=== PATIENT | male | born 1985 | race Caucasian/White ===

== ENCOUNTER 2019-06-12 22:40 | Inpatient (IN) | payer OTHER ==
[~2019-06-12] VITALS: Ht 157.5 cm; Wt 65.9 kg
[2019-06-12 23:06] LABS: BASOPHILS % (AUTO) 0.9 % (0.0-2.0); EOSINOPHILS % (AUTO) 3.8 % (1.0-6.0); HEMATOCRIT 45.4 % (41-53); HEMOGLOBIN 15.3 g/dL (13.5-17.5); LYMPHOCYTES # (AUTO) 2.7 K/uL (1.0-4.8); MEAN CORPUSCULAR HEMOGLOBIN 27.8 pg (26.0-34.0); MEAN CORPUSCULAR HGB CONC 33.7 G/dL (31.0-37.0); MEAN CORPUSCULAR VOLUME 82 fL (80-100); MONOCYTES # (AUTO) 0.4 K/uL (0.1-1.0); MONOCYTES % (AUTO) 5.2 % (2.0-9.0); NEUTROPHILS # (AUTO) 4.6 K/uL (1.8-7.7); NEUTROPHILS % (AUTO) 57.1 % (40.0-70.0); PLATELET COUNT (AUTO) 161 K/uL (150-450); RED BLOOD CELL COUNT(AUTO) 5.52 MIL/uL (4.50-5.90)
[2019-06-12 23:16] LABS: ANION GAP 8 mmol/L (8-16); CALCIUM, TOTAL 9.6 mg/dL (8.8-10.5); CARBON DIOXIDE 29 mmol/L (22-29); CHLORIDE 100 mmol/L (98-107); CREATININE 1.17 mg/dL (0.60-1.30); GLOMERULAR FILTR. RATE CALC > 60 mL/min (>60); GLUCOSE,RANDOM 101 mg/dL (70-110); POTASSIUM 3.9 mmol/L (3.5-5.1); SODIUM SERUM 137 mmol/L (136-145); UREA NITROGEN, BLOOD 13 mg/dL (7-18)
[2019-06-12 23:22] LABS: ALANINE AMINOTRANSFERASE 17 U/L (12-78); ALKALINE PHOSPHATASE 88 U/L (46-116); ASPARTATE AMINOTRANSFERASE 14 U/L (15-37); BILIRUBIN,TOTAL 0.4 mg/dL (0.1-1.0); TOTAL PROTEIN, SERUM 7.3 g/dL (6.4-8.2)
[2019-06-13] MEDS ORDERED: ONDANSETRON HCL 4 MG/2 ML VIAL IVP PRN ×2 (00:45→16:45)
[2019-06-13] MEDS ORDERED: 0.9% SODIUM CHLORIDE 10 ML SYRINGE IVP PRN (00:45)
[2019-06-13] MEDS ORDERED: ACETAMINOPHEN 325 MG TABLET PO PRN ×2 (00:45→16:45)
[2019-06-13 01:34] VITALS: BP 121/69
[2019-06-13 08:02] VITALS: BP 103/67
[2019-06-13] MEDS ORDERED: DSS100 PO (11:17)
[2019-06-13] MEDS ORDERED: OLAN5TAB2 PO (11:17)
[2019-06-13] MEDS ORDERED: PANT40TA25 PO (11:17)
[2019-06-13] MEDS ORDERED: TRAZ-220 PO (11:18)
[2019-06-13 11:30] VITALS: BP 114/68
[2019-06-13 15:53] VITALS: BP 100/59
[2019-06-13] MEDS ORDERED: ALBUTEROL SULFATE 2.5 MG/0.5 ML NEB SOLUTION NEB PRN (16:45)
[2019-06-13] MEDS ORDERED: IPRATROPIUM BROMIDE 0.5 MG/2.5 ML NEB SOLUTION NEB PRN (16:45)
[2019-06-13] MEDS ORDERED: ZOLPIDEM TARTRATE 5 MG TABLET PO PRN (16:45)
[2019-06-13] MEDS ORDERED: HYDROCODONE/ACETAMINOPHEN 5-325 MG TABLET PO PRN (16:45)
[2019-06-13] MEDS ORDERED: BISACODYL 10 MG RECTAL RECTAL SUPPOSITORY PR PRN (16:45)
[2019-06-13] MEDS ORDERED: MORPHINE SULFATE 2 MG/ML SYRINGE IVP PRN (16:45)
[2019-06-13] MEDS ORDERED: MAGNESIUM HYDROXIDE SUSPENSION 30 ML UDCUP PO PRN (16:45)
[2019-06-13 20:00] VITALS: BP 112/64
[2019-06-13] MEDS: DOCUSATE SODIUM 100 MG CAPSULE PO SCH (21:07)
[2019-06-14 01:10] VITALS: BP 101/64
[2019-06-14 05:10] VITALS: BP 100/54
[2019-06-14 07:57] VITALS: BP 97/46
[2019-06-14] MEDS: CLOTRIMAZOLE 1% 10 ML SOLUTION TP SCH ×2 (08:47→21:13)
[2019-06-14] MEDS: DOCUSATE SODIUM 100 MG CAPSULE PO SCH ×2 (08:47→21:13)
[2019-06-14] MEDS: ENOXAPARIN SODIUM 30 MG/0.3 ML PF SYRINGE SQ SCH (08:48)
[2019-06-14 20:30] VITALS: BP 104/57
[2019-06-14 23:48] VITALS: BP 109/66
[2019-06-15 04:58] VITALS: BP 121/64
[2019-06-15 07:25] VITALS: BP 105/65
[2019-06-15] MEDS: DOCUSATE SODIUM 100 MG CAPSULE PO SCH (08:26)
[2019-06-15] MEDS: CLOTRIMAZOLE 1% 10 ML SOLUTION TP SCH (08:28)
[2019-06-15] MEDS: ENOXAPARIN SODIUM 30 MG/0.3 ML PF SYRINGE SQ SCH (08:29)
[2019-06-15 11:46] VITALS: BP 107/59
== END 2019-06-15 12:15 | DRG 885 ==
LOC: EMS 22:44 → 6S 06-13 00:01
PROVIDERS: ADMIT Internal Medicine
DX: F33.2 Major depressive disorder, recurrent severe without psychotic features (principal); R45.851 Suicidal ideations; B35.3 Tinea pedis
CPT/HCPCS: 99406; G0480; J1650

== ENCOUNTER 2019-09-14 23:56 | Inpatient (IN) | payer OTHER ==
[~2019-09-14] VITALS: Ht 165.1 cm; Wt 85.0 kg
[2019-09-15 03:05] VITALS: BP 130/82
[2019-09-15 07:45] VITALS: BP 98/62
[2019-09-15] MEDS ORDERED: ACETAMINOPHEN 325 MG TABLET PO PRN (08:15)
[2019-09-15] MEDS ORDERED: MAGNESIUM HYDROXIDE SUSPENSION 30 ML UDCUP PO PRN (08:15)
[2019-09-15 11:00] VITALS: BP 110/75
[2019-09-15 15:15] VITALS: BP 104/67
[2019-09-15 17:57] LABS: AMPHET/METH SCREEN,URINE NEGATIVE (NEGATIVE); BARBITURATE SCREEN, URINE NEGATIVE (NEGATIVE); BENZODIAZEPINES SCREEN,URINE NEGATIVE (NEGATIVE); CANNABINOID SCREEN,URINE NEGATIVE (NEGATIVE); COCAINE SCREEN,URINE NEGATIVE (NEGATIVE); METHADONE SCREEN, URINE NEGATIVE (NEGATIVE); OPIATE SCREEN,URINE NEGATIVE (NEGATIVE); PHENCYCLIDINE SCREEN,URINE NEGATIVE (NEGATIVE)
[2019-09-15 19:49] VITALS: BP 103/67
[2019-09-15] MEDS: OLANZapine 5 MG TABLET PO SCH (21:00)
[2019-09-15 23:45] VITALS: BP 106/72
[2019-09-16 05:58] VITALS: BP 94/66
[2019-09-16 07:15] VITALS: BP 101/69
[2019-09-16 11:14] VITALS: BP 104/64
[2019-09-16 15:52] VITALS: BP 110/62
[2019-09-16] MEDS: OLANZapine 5 MG TABLET PO SCH (19:51)
[2019-09-16 19:52] VITALS: BP 120/68
[2019-09-16 23:52] VITALS: BP 103/67
[2019-09-17 05:10] VITALS: BP 97/63
[2019-09-17 07:30] VITALS: BP 107/66
[2019-09-17 11:03] VITALS: BP 115/67
[2019-09-17 15:40] VITALS: BP 100/60
[2019-09-17 19:50] VITALS: BP 104/66
[2019-09-17] MEDS: OLANZapine 5 MG TABLET PO SCH (20:12)
[2019-09-17 23:58] VITALS: BP 102/68
[2019-09-18 04:55] VITALS: BP 99/63
[2019-09-18 08:30] VITALS: BP 108/65
[2019-09-18 11:58] VITALS: BP 99/56
[2019-09-18 16:15] VITALS: BP 107/82
[2019-09-18 20:23] VITALS: BP 114/72
[2019-09-18] MEDS: OLANZapine 5 MG TABLET PO SCH (20:41)
[2019-09-19 00:04] VITALS: BP 108/72
[2019-09-19 05:41] VITALS: BP 111/65
[2019-09-19 08:09] VITALS: BP 110/68
[2019-09-19 12:06] VITALS: BP 114/71
[2019-09-19 15:37] VITALS: BP 106/66
[2019-09-19 19:45] VITALS: BP 118/66
[2019-09-19] MEDS: OLANZapine 10 MG TABLET PO SCH (20:19)
[2019-09-20] VITALS (7 sets, daily range): BP systolic 101–122; BP diastolic 57–78
[2019-09-20] MEDS: OLANZapine 10 MG TABLET PO SCH (20:18)
[2019-09-21 04:49] VITALS: BP 106/63
[2019-09-21 07:50] VITALS: BP 102/69
[2019-09-21] MEDS ORDERED: OLAN10TA3 PO (11:33)
[2019-09-21 11:41] VITALS: BP 105/62
== END 2019-09-21 15:18 | DRG 885 ==
LOC: EMS 23:56 → EDUNIT# 23:56 → EDBD 23:56 → 6S 09-15 01:30
PROVIDERS: ADMIT Internal Medicine; ATTEND Internal Medicine
DX: F20.0 Paranoid schizophrenia (principal); R45.851 Suicidal ideations; Z53.20 Procedure and treatment not carried out because of patient's decision for unspecified reasons
CPT/HCPCS: 80307